=== PATIENT | female | born 1950 | race Caucasian/White ===

== ENCOUNTER 2016-12-13 22:05 | Observation (INO) | payer OTHER, MEDICARE ==
[~2016-12-13] VITALS: Ht 160 cm; Wt 60.3 kg
[2016-12-13 23:37] VITALS: BP 175/83; PULSE 87; RESP 20; O2SAT 94
[2016-12-13] MEDS ORDERED: ATEN50TA PO (23:44)
[2016-12-13] MEDS ORDERED: LOSA50TA37 PO (23:44)
[2016-12-13] MEDS ORDERED: DILT240C9 PO (23:44)
[2016-12-13] MEDS ORDERED: LEVO50TA6 PO (23:44)
[2016-12-14] MEDS ORDERED: Ondansetron 2 mg/mL 2 mL Inj IVPUSH PRN
[2016-12-14] MEDS ORDERED: Alum-Mag Hydrox-Simeth 30 mL Suspension PO PRN
[2016-12-14] MEDS ORDERED: Polyethylene Glycol (PEG) 17 Gm Powder PO PRN
[2016-12-14] MEDS: MeTOProlol XL 25 mg ER24 Tablet PO SCH ×2 (00:53→08:30)
[2016-12-14] MEDS: Heparin 5,000 Unit/mL Inj SUBQ SCH ×2 (00:53→10:08)
--- NOTE | 2016-12-14 01:14 | PCM.HPMED ---
Subjective Date of Service Dec 14, 2016 Primary Provider: Admitting Physician: Cinda Bojorquez DO Primary Care Physician: Stephen Walter DO Attending Physician: Cinda Bojorquez DO Admit Status: Direct Admit Chief Complaint: Chest pressure, jaw pain, and palpitations History of Present Illness: Lexii Mayer is a 66 year old woman with past medical significant for hypothyroid, hypertension, and COPD who was transferred from [facility] for management of A fib with rvr. Events leading up to her presentation to [facility] started around 1700 on 12/13/16. At this time she began to have jaw pain, chest pressure, and palpitations. She called her who had her sit down and take 2 baby aspirin. When these symptoms did not subside her took her to the hospital as she refused to call EMS. On presentation to [facility] she was found to be in A. fib with rapid ventricular rate. She was given a dose of diltiazem which slowed her rate initially. Her rate being and to increase again in a diltiazem drip was started. Due to lack of ICU beds at [facility] she was transferred to [facility]. On presentation to [facility] she was in normal sinus rhythm without diltiazem drip. Upon further review of the patient's history she has had 2 or 3 similar episodes over the past year where she experiences palpitations and a sensation of her heart racing. These episodes have resolved without intervention within minutes. Interestingly, the patient's medication regimen includes diltiazem and atenolol but both her and her denied any prior diagnosis of atrial fibrillation. Patient often forgets to take her medications and the states the compliance is a significant issue. She missed her last dose of diltiazem and atenolol in the believes it may have been 2 or 3 days since she last took these medications. Patient denies any associated nausea, vomiting, fever, chills, shortness of breath, cough, diaphoresis, or lightheadedness. On arrival to [facility] patient was afebrile and in normal sinus rhythm with a rate of 87, blood pressure was 175/83, saturating 94% on room air. Labs at [facility] were unremarkable including a troponin I of <0.4. Review of Systems: Comprehensive review of systems was conducted with the patient and found to be negative except as noted above in HPI. Allergies Coded Allergies: codeine (Verified Allergy, Unknown, 12/13/16) erythromycin base (Verified Allergy, Unknown, 12/13/16) Home Medications Levothyroxine Atenolol 50 mg nightly Diltiazem ER 240 mg nightly Losartan 50 mg in the morning PMH COPD Hypertension Hypothyroidism Precancerous skin lesions Surgical History Left wrist fracture repair Family History Father - healthy at age 87 Mother - COPD Social History Occupation: assistant food service manager Hx Alcohol Use: Yes Alcoholic Drinks Per Day: 2-3 glasses of wine Hx Substance Use: No Hx Tobacco Use: No Smoking Status: Former Smoker (quit 10 years ago) Years of Smokin Living Arrangement: with Family Exam Vital Signs Vital Sign - Last Date Time Temp Pulse Resp B/P Pulse Ox O2 Delivery O2 Flow Rate FiO2 12/13/16 23:37 36.8 87 20 175/83 94 Room Air Exam General: No acute distress, well-developed, well-nourished, appropriately interactive HEENT: Normocephalic, atraumatic. External ears without defect. Pupils equal, round, and reactive to light and accommodation. Anicteric sclerae, moist conjunctivae, and no lid lag. Oropharynx free of erythema and cobble stoning with moist mucosa. Neck: Supple with full range of motion. No jugular venous distension. No lymphadenopathy or thyromegaly. Cardiovascular: Regular rate and rhythm with faint systolic murmur. Pulmonary: Diffuse wheezes throughout with faint bibasilar crackles. Normal respiratory effort with no use of accessory muscles. Abdomen: Bowel tones present. Soft, nontender, nondistended. No hepatosplenomegaly or masses appreciated. Extremities: No clubbing, cyanosis, edema, or lymphadenopathy appreciated. Skin: Normal temperature, turgor, and texture; no rash, ulcers, or subcutaneous nodules appreciated. Neurological: Cranial nerves grossly intact. Normal muscle strength, tone, and bulk. Reflexes, coordination, and sensory function within normal limits. No known gait impairment. Psychiatric: Normal mood and affect. Alert and oriented to person, place, and time. Patient exhibiting some signs of dementia as she forgets instructions or details just discussed. Lab and Diagnostics Labs CMP and CBC at [facility] unremarkable. X-Rays, CTs and MRIs Chest x-ray at [facility] showed no acute cardiopulmonary process. 12-lead ECG EKG on presentation to [facility] showed atrial fibrillation with rapid RVR. Current rhythm seen on telemetry at [facility] is normal sinus rhythm with a rate in the 80s to 90s. Assessment & Plan Lexii Mayer is a 66 year old woman with past medical significant for hypothyroid, hypertension, and COPD who was transferred from [facility] for management of A fib with rvr. Atrial fibrillation, possibly new onset, present on admission, active. - Patient and are not aware of a prior diagnosis of atrial fibrillation although her medication regimen would suggest otherwise. Patient has been noncompliant with medication. - EKG at [facility] showed atrial fibrillation with RVR. On presentation to [facility] patient in normal sinus rhythm. - CHADSVASC score of 3. Warfarin dosing per pharmacy started for anticoagulation - No electrolyte abnormalities seen. - TSH with reflex free T4 ordered and pending. - Urinalysis pending. - Echocardiogram ordered for the morning. - Continue home regimen of diltiazem ER 240 mg. - Switched atenolol to metoprolol succinate 25 mg given this evening. Day team to adjust dose for appropriate rate control. Hypertension, present on admission, chronic. - Continue losartan 50 mg daily. - Metoprolol succinate as above. COPD, present on admission, chronic. - Patient does not use any inhalers at baseline. - Duonebs every 6 hours when necessary. Hypothyroidism, present on admission, chronic. - Continue home regimen of levothyroxine. - TSH and reflex free T4 ordered and pending. PRN Medications - Acetaminophen as needed for mild pain/fever/headache - Bowel regimen as needed - Antiemetic as needed Patient is admitted under observation status with expected length of stay less than 2 midnights due to severity of presenting symptoms, risk of adverse event, and complexity of treatment plan. Pain Evaluation: Adequate Pain Control GI Prophylaxis: Not indicated VTE Prophylaxis: Sub-Q Heparin (Unfractionated), SCDs Resuscitation Status: CPR: Attempt Resuscitation Attending Statement The patient was seen and examined together with house staff on 12/14/2016 and I agree with the history, exam and plan as outlined in the note above. BREANNA CALLES DO Dec 14, 2016 01:14 Cinda Bojorquez DO Dec 14, 2016 02:36
[2016-12-14 01:19] LABS: APPEARANCE,URINE CLEAR (CLEAR,HAZY); COLOR,URINE YELLOW (YELLOW); OCCULT BLOOD,URINE NEGATIVE (NEGATIVE); UROBILINOGEN,URINE NORMAL (NORMAL)
[2016-12-14 01:36] LABS: Magnesium 1.8 mg/dL (1.6-2.6); Phosphorus 3.8 mg/dL (2.5-4.9); TROPONIN T 0.011 ug/L (0.0-0.011)
[2016-12-14 04:45] VITALS: BP 185/76; PULSE 71; RESP 20; O2SAT 97
--- NOTE | 2016-12-14 05:17 | NUR ---
Admit Patient admitted to [facility] 2004 at 2315. A&Ox3, DOW, denies chest pain, shortness of breath palpitations. Per report from [facility], patient had presented to their ED with a-fib RVR with rates into the 200s. On arrival to [facility], patient in sinus rhythm in the 90s. Admit documentation and med reconciliation completed. Dr. Iqbal to bedside to assess patient.
[2016-12-14 05:20] VITALS: PULSE 89
[2016-12-14 06:00] VITALS: BP 187/80
[2016-12-14 07:59] LABS: INR 0.98 ratio
[2016-12-14] MEDS ORDERED: Diltiazem CD 240 mg ER24 Capsule PO SCH (08:30)
[2016-12-14 08:54] VITALS: PULSE 81
[2016-12-14 10:00] VITALS: BP 174/87; PULSE 80; RESP 12; O2SAT 96
[2016-12-14] MEDS ORDERED: Dabigatran 150 mg Capsule PO SCH (12:25)
[2016-12-14] MEDS ORDERED: METO50TA3 PO (12:32)
[2016-12-14] MEDS ORDERED: DABI150C PO (12:32)
--- NOTE | 2016-12-14 12:37 | PCM.DIMED ---
Luciano Guo DO 12/14/16 1237: Discharge Instructions Date of Service Dec 14, 2016 Dates of Hospitalization Dec 13, 2016 at 23:20 Discharge Diagnosis Discharge Diagnosis Atrial fibrillation Hypertension COPD Hypothyroidism Medication Instructions Additional med instructions New Medications Pradaxa 150 mg one pill by mouth two times per day until reviewed by your primary care provider Metoprolol Tartrate 50 mg one pill by mouth two times per day until reviewed by your primary care provider STOP taking atenolol Diet Discharge Diet: Heart Healthy Activity Discharge Activity: No restrictions Call your provider Call your provider for: Shortness of breath, Chest pain, Weakness (unilateral) Patient Instructions Patient Instructions New Medications Pradaxa 150 mg one pill by mouth two times per day until reviewed by your primary care provider Metoprolol Tartrate 50 mg one pill by mouth two times per day until reviewed by your primary care provider STOP taking atenolol Follow up with your primary care physician within the next week - discuss your new blood thinning medication, Pradaxa - discuss your metoprolol and recent hospital visit - Discuss blood pressure control. It was elevated in the hospital Take all of your medications regularly and as prescribed Follow-up Provider: Stephen Walter DO Follow-up with PCP in: 1 week Bhavesh Vines MD 12/14/16 1804: Discharge Instructions Attending's Statement The patient was seen and examined together with Dr. Guo on 12/14/2016 and I agree with the history, exam and plan as outlined in the note above. . Luciano Guo DO Dec 14, 2016 12:37 Bhavesh Vines MD Dec 14, 2016 18:04
--- NOTE | 2016-12-14 12:50 | DRSVH ---
[facility] [address] [place] [address] Echocardiogram Report Name: SASHA FELICIANO MStudy Date : 12/14/2016 Height: 63 in Hospital Exam Location: [facility] Weight: 133 lb Gender: Female BSA: 1.6 m2 : 1950 Age: 66 yrs BP: 187/80 mm Hg Reason For Study: Atrial fibrillation Ordering Physician: [facility] Performed By: Domo Feliciano Referring Physician: BREANNA CALLES Interpretation Summary Left ventricular wall thickness is borderline increased. The ejection fraction is estimated to be 60-65%. Left ventricular wall motion is normal. The right ventricle is normal in size, thickness and function. Pulmonary artery pressures cannot be estimated because of the lack of a measurable TR jet velocity. The left atrium is borderline dilated. Right atrial size is normal. There is no significant valvular heart disease. The ascending aorta is mildly enlarged. Procedure: A two-dimensional transthoracic echocardiogram with color flow and Doppler was performed. The study quality was technically adequate. There is no prior echocardiogram noted for this patient. The patient was in normal sinus rhythm during the exam. Left Ventricle: Left ventricular wall thickness is borderline increased. The left ventricle is normal in size. The ejection fraction is estimated to be 60-65%. Left ventricular wall motion is normal. Assessment of diastolic parameters indicates normal left ventricular diastolic function and normal filling pressures. Right Ventricle: The right ventricle is normal in size, thickness and function. Atria: The left atrium is borderline dilated. Right atrial size is normal. The interatrial septum is intact with no evidence for an atrial septal defect. Mitral Valve: The mitral valve is normal. There is trace mitral regurgitation. Aortic Valve: The aortic valve is normal in structure and function. There is trace aortic regurgitation. Tricuspid Valve: The tricuspid valve is normal. Pulmonary artery pressures cannot be estimated because of the lack of a measurable TR jet velocity. Pulmonic Valve: The pulmonic valve leaflets are thin and pliable; valve motion is normal. There is no pulmonic valvular regurgitation. There is no significant valvular heart disease. Great Vessels: The aortic root is normal size. The ascending aorta is mildly enlarged. The pulmonary artery is normal size. The IVC is of normal diameter and collapses greater than 50% with a sniff. This suggests a low right atrial pressure of 3 mm Hg. Pericardium/ Pleura There is no pericardial effusion. There is no pleural effusion. MMode/2D Measurements & Calculations LVIDd: 5.1 cm RA long axis LVOT diam: 2.0 cm LVIDs: 3.3 cm LA A2 area: 19.0 cm AoV Opening FS: 34.9 % LA A4 area: 15.9 cm RA area EPSS: 0.42 cm LA length (vol) Ao root diam IVSd: 1.0 cm : 11.3 cm LVPWd: 0.95 cm LA vol: 54.6 ml RA vol asc Aorta Diam LA vol index : 25.2 ml RA Ao Arch Diam (Prox : 15.5 mm2 Trans): 2.5 cm IVC diam: 1.2 cm LV malcolm. diameter/BSA LV sys. diameter/BSA RVD1 (basal) TAPSE: 2.2 cm (cm/m^2): 3.2 (cm/m^2): 2.1 Doppler Measurements & Calculations Ao V2 max: 121.1 cm/secMV E max dawit MV E/A: 0.89 PA V2 max Ao max P.9 mmHg : 54.3 cm/sec Med Peak E' Dawit : 85.5 cm/sec Ao mean P.3 mmHg MV A max dawit PA mean PG LVOT Max Dawit : 60.8 cm/sec E/E' med: 11.4 : 1.4 mmHg : 97.3 cm/sec Lat Peak E' Dawit MINNIE(I,D): 2.6 cm E/E' lat: 8.8 sev ratio: 0.84 E/e' average MV dec time: 0.24 sec Ao V2 mean LV V1 max PG PA V2 mean : 86.4 cm/sec : 55.3 cm/sec Ao V2 VTI: 27.4 cmLV V1 VTI: 23.0 cm PA pr(Accel) : 26.3 mmHg MINNIE(V,D): 2.5 cm2 MINNIE indexed to BSA (cm^2/m^2): 1.6 Reading Physician:SARAVANAN
--- NOTE | 2016-12-14 14:25 | NUR ---
Social Work- Initial Assessment/Discharge/Multidisciplinary Rounds Data: See initial assessment for more information. Pt is a 66 year old female admitted 12/13/16 for AFIB RVR per H&P. Pt's insurance is [facility] and [facility]. Pt's PCP is Stephen Walter DO. Pt's designated support person is Harry Mayer, . SW met with pt at bedside regarding discharge plan, SW role explained. Pt alert and oriented x3. Pt's capacity for self care assessed. Pt resides in [place] with her spouse where she is independent with self care and ADLs. Pt uses no DME and drives. No HH or SNF history. SW requested DPOA information from pt and spouse. Pt provided with discharge planning checklist and phone number. Pt to discharge home with spouse to transport via POV. No needs identified. Assessment: Pt who is independent at baseline. Plan: Pt to discharge home with spouse to transport via POV. No needs identified. MATILDE Estrada Addendum: 12/14/16 at 1428 by ALEXANDRU HERNÁNDEZ Amended: Links added.
--- NOTE | 2016-12-14 18:04 | NUR ---
BP/Discharge Pt's discharge order placed and instructed to check BP one more time before Pt discharged, BP 189/116, updated who assessed Pt, RN instructed to continue with discharge after MD had seen the Pt. Pt discharged to home with at ~1415 today. Pt given discharge educational materials on new prescriptions and a fib. Pt's IV access D/C'd and intact. Pt instructed to f/u with PCP in ~1 week, Pt and verbalized that they would contact her PCP for a f/u appointment. Pt and verbalized understanding of all discharge instructions. All belongings accompanied Pt at time of discharge.
--- NOTE | 2016-12-14 22:52 | PCM.DC.MED ---
Discharge Summary Date of Service Dec 14, 2016 Dates of Hospitalization Date of Hospital Admission Dec 13, 2016 at 23:20 Date of Discharge: Dec 14, 2016 Providers: Admitting Physician: Cinda Bojorquez DO Primary Care Physician: Stephen Walter DO Attending Physician: Bhavesh Vines MD Artificial Candy Maker: Otto Guo DO Diagnosis at Time of Discharge Diagnosis at Time of Discharge Atrial fibrillation Hypertension COPD Hypothyroidism Procedures XRay, CTs & MRIs Chest x-ray at [facility] showed no acute cardiopulmonary process. ECG 12 Lead EKG on presentation to [facility] showed atrial fibrillation with rapid RVR. Current rhythm seen on telemetry at [facility] is normal sinus rhythm with a rate in the 80s to 90s. Cardiac Echo Impression Interpretation Summary Left ventricular wall thickness is borderline increased. The ejection fraction is estimated to be 60-65%. Left ventricular wall motion is normal. The right ventricle is normal in size, thickness and function. Pulmonary artery pressures cannot be estimated because of the lack of a measurable TR jet velocity. The left atrium is borderline dilated. Right atrial size is normal. There is no significant valvular heart disease. The ascending aorta is mildly enlarged. Brief History Lexii Maeyr is a 66 year old woman with past medical significant for hypothyroid, hypertension, and COPD who was transferred from [facility] for management of A fib with rvr. Events leading up to her presentation to [facility] started around 1700 on 12/13/16. At this time she began to have jaw pain, chest pressure, and palpitations. She called her who had her sit down and take 2 baby aspirin. When these symptoms did not subside her took her to the hospital as she refused to call EMS. On presentation to [facility] she was found to be in A. fib with rapid ventricular rate. She was given a dose of diltiazem which slowed her rate initially. Her rate being and to increase again in a diltiazem drip was started. Due to lack of ICU beds at [facility] she was transferred to [facility]. On presentation to [facility] she was in normal sinus rhythm without diltiazem drip. Upon further review of the patient's history she has had 2 or 3 similar episodes over the past year where she experiences palpitations and a sensation of her heart racing. These episodes have resolved without intervention within minutes. Interestingly, the patient's medication regimen includes diltiazem and atenolol but both her and her denied any prior diagnosis of atrial fibrillation. Patient often forgets to take her medications and the states the compliance is a significant issue. She missed her last dose of diltiazem and atenolol in the believes it may have been 2 or 3 days since she last took these medications. Patient denies any associated nausea, vomiting, fever, chills, shortness of breath, cough, diaphoresis, or lightheadedness. On arrival to [facility] patient was afebrile and in normal sinus rhythm with a rate of 87, blood pressure was 175/83, saturating 94% on room air. Labs at [facility] were unremarkable including a troponin I of <0.4. Hospital Course Lexii Mayer is a 66 year old woman with past medical significant for hypothyroid, hypertension, and COPD who was transferred from [facility] for management of A fib with RVR. She was actually converted with diltiazem before transfer and was in sinus rhythm upon presentation at [facility]. Atrial fibrillation, possibly new onset, present on admission, Resolved - Patient and are not aware of a prior diagnosis of atrial fibrillation although her medication regimen would suggest otherwise. Patient has been noncompliant with medication. - EKG at [facility] showed atrial fibrillation with RVR. On presentation to [facility] patient in normal sinus rhythm. - CHADSVASC score of 3. Patient started on Pradaxa 150 mg PO BID after discussing with [facility], which NOAC is covered by insurance. - Continue home regimen of diltiazem ER 240 mg. - Switched atenolol to metoprolol tartrate 50 mg BID - Echocardogram done, results as above. Final read was not available before patient discharged from hospital. Hypertension, present on admission, chronic. - Continue losartan 50 mg daily. - Metoprolol succinate as above. - This requires close outpatient follow up and possible need for 3rd antihypertensive agent as pressures elevated in hospital to 170's. COPD, present on admission, chronic. - Patient does not use any inhalers at baseline. Hypothyroidism, present on admission, chronic. - Continue levothyroxine. - TSH and reflex free T4 ordered and pending. Exam Vital Signs (Last) Date Time Temp Pulse Resp B/P Pulse Ox O2 Delivery O2 Flow Rate FiO2 7/22/17 10:00 36.4 80 12 174/87 96 Room Air Exam General: No acute distress, well-developed, well-nourished, appropriately interactive HEENT: Normocephalic, atraumatic. External ears without defect. Pupils equal, round, and reactive to light and accommodation. Anicteric sclerae, moist conjunctivae, Oropharynx free of erythema and cobble stoning with moist mucosa. Neck: Supple with full range of motion. No jugular venous distension. No lymphadenopathy or thyromegaly. Cardiovascular: Regular rate and rhythm, with no murmurs, rubs or gallops. Pulmonary: Lungs clear to auscultation bilaterally Normal respiratory effort with no use of accessory muscles. Abdomen: Bowel tones present. Soft, nontender, nondistended. No hepatosplenomegaly or masses appreciated. Extremities: No clubbing, cyanosis, edema, or lymphadenopathy appreciated. Skin: Normal temperature, turgor, and texture; no rash, ulcers, or subcutaneous nodules appreciated. Neurological: Cranial nerves grossly intact. Normal muscle strength, tone, and bulk. Reflexes, coordination, and sensory function within normal limits. No known gait impairment. Psychiatric: Normal mood and affect. Alert and oriented to person, place, and time. Patient exhibiting some signs of dementia as she forgets instructions or details just discussed. Test 12/14/16 00:08 12/14/16 00:35 12/14/16 07:34 Urine Color Yellow (YELLOW) Urine Appearance Clear (CLEAR,HAZY) Urine pH 6.0 (5.0-8.0) Urine Specific [place] 1.010 (1.003-1.035) Urine Protein Negativemg/dL (NEG,TRACE) Urine Glucose (UA) Negativemg/dL (NEGATIVE) Urine Ketones Negativemg/dL (NEGATIVE) Urine Occult Blood Negative (NEGATIVE) Urine Nitrite Negative (NEGATIVE) Urine Bilirubin Negative (NEGATIVE) Urine Urobilinogen Normalmg/dL (NORMAL) Urine Leukocyte Esterase Negative (NEGATIVE) Urine RBC 0-2/hpf (0-2) Urine WBC 0-5/hpf (0-5) Urine Epithelial Cells Occasional/hpf (NONE-MOD) Urine Crystals None seen (NONE SEEN) Urine Bacteria None/hpf (NONE-FEW) Urine Hyaline Casts None/lpf (NONE) Urine Granular Casts None seen (NONE SEEN) Urine Waxy Casts None seen (NONE SEEN) Urine Red Blood Cell Casts None seen (NONE SEEN) Urine White Blood Cell Casts None seen (NONE SEEN) Urine Mucus None seen (None Seen) Urine Trichomonas None seen (NONE SEEN) Urine Yeast None (NONE SEEN) Urinalysis Comment None Urine Culture Reflexed Not indicated Hold Urine Received (Received) Sodium Level 138mEq/L (134-144) Potassium Level 4.2mEq/L (3.5-5.2) Chloride Level 99mEq/L (97-108) Carbon Dioxide Level 22mmol/L (18-29) Blood Urea Nitrogen 18mg/dL (8-27) Creatinine 0.61mg/dL (0.57-1.00) Estimat Glomerular Filtration Rate 141mL/min (>59) Glucose Level 110mg/dL (60-99) Calcium Level 9.3mg/dL (8.5-10.1) Phosphorus Level 3.8mg/dL (2.5-4.9) Magnesium Level 1.8mg/dL (1.6-2.6) Total Bilirubin 0.7mg/dL (0.0-1.2) Aspartate Amino Transf (AST/SGOT) 17U/L (0-50) Alanine Aminotransferase (ALT/SGPT) 10U/L (0-32) Alkaline Phosphatase 64U/L (25-165) Total Protein 6.9g/dL (6.4-8.4) Albumin 4.2g/dL (3.4-5.0) Thyroid Stimulating Hormone (TSH) 6.960uIU/mL (0.450-4.500) Free Thyroxine 1.38ng/dL (0.82-1.77) Hematocrit 40.6% (35.0-46.0) Platelet Count 200bil/L (150-400) Prothrombin Time 10.5sec (8.1-12.5) Prothromb Time International Ratio 0.98ratio Troponin T 0.010ug/L (0.0-0.011) Discharge Medications Discharge Medications Dabigatran Etexilate Mesylate (Pradaxa) 150 Mg Capsule 150 MG PO BID Prescribed by: OTTO GUO, Diltiazem ER (Diltiazem ER) 240 Mg Cap.er.deg 240 MG PO DAILY (Reported) Levothyroxine (Levothyroxine) 50 Mcg Tablet 50 MCG PO DAILY (Reported) Metoprolol Tartrate (Metoprolol Tartrate) 50 Mg Tablet 50 MG PO BID Prescribed by: OTTO GUO, Miscellaneous Medications Losartan Potassium (Losartan Potassium) 50 Mg Tablet 50 MG PO (Reported) Additional med instructions New Medications Pradaxa 150 mg one pill by mouth two times per day until reviewed by your primary care provider Metoprolol Tartrate 50 mg one pill by mouth two times per day until reviewed by your primary care provider STOP taking atenolol Followup Plan Discharge Diet: Heart Healthy Discharge Activity: No restrictions Patient Instructions New Medications Pradaxa 150 mg one pill by mouth two times per day until reviewed by your primary care provider Metoprolol Tartrate 50 mg one pill by mouth two times per day until reviewed by your primary care provider STOP taking atenolol Follow up with your primary care physician within the next week - discuss your new blood thinning medication, Pradaxa - discuss your metoprolol and recent hospital visit - Discuss blood pressure control. It was elevated in the hospital Take all of your medications regularly and as prescribed Follow-up Provider: Stephen Walter DO Follow-up with PCP in: 1 week Time spent Greater than 30 minutes was spent in preparation of discharge with greater than 50% of that time dedicated to patient counseling and coordination of care. . Attending Statement The patient was seen and examined together with Dr. Guo on 12/14/2016 and I agree with the history, exam and plan as outlined in the note above. . copies to: Stephen Walter Malik A DO Dec 14, 2016 22:52 Bhavesh Vines MD Dec 15, 2016 08:06
== END 2016-12-14 13:40 | disposition home or self-care (01) ==
LOC: INTOOBSV 23:20 → PCC 23:20
PROVIDERS: ADMIT Internal Medicine; ATTEND Internal Medicine
DX: I48.91 Unspecified atrial fibrillation (principal); I10 Essential (primary) hypertension; J44.9 Chronic obstructive pulmonary disease, unspecified; E03.9 Hypothyroidism, unspecified; Z88.1 Allergy status to other antibiotic agents; Z88.5 Allergy status to narcotic agent; Z79.899 Other long term (current) drug therapy
CPT/HCPCS: 36415; 80053; 81000; 83735; 84100; 84439; 84443; 84484; 85014; 85049; 85610; C8929; G0378; G0379; J1644